=== PATIENT | male | born 1985 | race Caucasian/White ===

== ENCOUNTER 2021-02-10 14:01 | Emergency (ER) | payer OTHER, SELFPAY ==
[2021-02-10] VITALS (11 sets, daily range): BP systolic 144–156; BP diastolic 73–83; PULSE 64–65; RESP 16–18; TEMP 37; O2SAT 99–100
--- NOTE | ~2021-02-10 | CT_ITS ---
EXAMINATION: CT abdomen pelvis w con DATE: 02/10/2021 14:49 INDICATION: Right lower quadrant abdominal pain TECHNIQUE: Computed tomography (CT) of the abdomen and pelvis was performed with 100 mL Omnipaque-350 intravenous contrast. Automated exposure control and iterative reconstruction technique were employe d. The dose-length product was 415.18 mGy-cm. COMPARISON: None FINDINGS: Lung bases are clear. The visualized inferior heart is normal. No pericardial or pleural effusion. Li reji, gallbladder, spleen, pancreas and bilateral adrenal glands are normal. Bilateral renal cysts the largest measuring 12 mm in the left kidney. No obstruction or abnormal bowel wall thickening. There is a likely a normal appendix seen extending caudally along the right iliopsoas. No pericecal inflamm atory change to suggest acute appendicitis. Mild diffuse bladder wall thickening which could be relat ed to partially decompressed state although differential includes cystitis. No free intraperitoneal g as or fluid. No pathologically enlarged abdominal or pelvic lymphadenopathy. Mild degenerative skelet al changes in the spine and at both hips. Chronic mild anterior wedging at T11-L2. Partial ankylosis across the right sacroiliac joint. IMPRESSION: 1. Diffuse mild bladder wall thickening which could be due to incomplete distention or cystitis eithe r acute or chronic. Correlate with urinalysis. Reviewed, dictated and finalized at location B. IMPRESSION: 1. Diffuse mild bladder wall thickening which could be due to incomplete disten tion or cystitis either acute or chronic. Correlate with urinalysis.
[2021-02-10] MEDS: SODIUM CHLORIDE 0.9% IV 1,000 ML 999 ML IV CONT (14:19)
[2021-02-10 14:27] LABS: Basophils Percent Auto 0.1 % (0.2-1.2); Eosinophils Percent Auto 0.1 % (0-4.4); Hematocrit 47.4 % (42.0-52.0); Hemoglobin 15.7 g/dL (14.0-18.0); Immature Granulocyte Absolute 0.03 K/mm3 (0.00-0.031); Immature Granulocyte Percent A 0.4 % (0-0.5); Lymphocytes Absolute Auto 1.12 K/mm3 (0.9-3.2); Lymphocytes Percent Auto 15.3 % (18.3-44.2); Mean Corpuscular HGB Conc 33.1 g/dl (32-36); Mean Corpuscular Hemoglobin 27.2 pg (26-34); Mean Platelet Volume 12.6 fl (7.4-10.4); Monocytes Absolute Auto 0.6 K/mm3 (0.1-0.6); Monocytes Percent Auto 8.1 % (2.6-8.5); Neutrophils Absolute Auto 5.6 K/mm3 (1.3-6.7); Platelet Count Result 164 k/mm3 (150-375); Red Blood Count 5.78 M/mm3 (4.6-6.20); Red Cell Distribution Width 12.5 % (11.5-14.5); White Blood Count 7.3 K/mm3 (4.5-10.0)
--- NOTE | 2021-02-10 14:31 | ED.GENADULT ---
HPI - General Adult General Chief complaint: Abdominal Pain Stated complaint: Abd Pain Time Seen by Provider: 02/10/21 14:04 History of Present Illness HPI narrative: Patient is a 35-year-old male who presents ER with lower abdominal pain. Reports he began around the middle of his abdomen around 10 AM. It since moved around to the right side. No urinary frequency or urgency. No pain radiating into his testicle. The pain does not particularly radiate anywhere. Cannot describe any aggravating or alleviating factors. He has had some mild nausea but no vomiting. No fevers or chills or sweats. 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 Related Data Allergies Allergy/AdvReac Type Severity Reaction Status Date / Time No Known Allergies Allergy Verified 02/10/21 14:23 Review of Systems Review of Systems: All systems reviewed & are unremarkable except as noted in HPI and below Constitutional: Constitutional: Denies chills, Denies fever(s) and Denies weakness Cardiovascular: Cardiovascular: Denies chest pain and Denies radiating jaw, neck or arm pain Respiratory: Respiratory: Denies cough, Denies dyspnea and Denies wheezing Gastrointestinal: Gastrointestinal: Reports abdominal pain, Denies diarrhea, Reports nausea and Denies vomiting Genitourinary: Genitourinary: Denies dysuria, Denies testicular pain and Denies urinary frequency PMFSH Past Medical History Medical History (Updated 02/10/21 @ 15:36 by Lefty Laws MD) Healthy adult male Surgical History Surgical History (Updated 02/10/21 @ 14:33 by Lefty Laws MD) S/P orchiopexy Social History Social History Alcohol intake: never Exam Narrative: Exam Narrative: GENERAL: Well-appearing, well-nourished, and in no acute distress. HEAD: Normocephalic, atraumatic. CHEST: Clear to auscultation. No respiratory distress. HEART: Regular rate and rhythm. Normal peripheral pulses. ABDOMEN: Soft, mild tenderness at McBurney's point w/o guarding but + [place], nondistended. EXTREMITIES: Normal range of motion. No edema. SKIN: Warm, dry, no rash. NEURO: Alert and oriented x3. PSYCH: Normal mood and affect. Course Course Emergency Course: Unremarkable evaluation. Discharge home. Vital Signs Vital signs: Vital Signs Temperature 98.6 F 02/10/21 14:05 Pulse Rate 65 02/10/21 14:05 Respiratory Rate 16 02/10/21 14:05 Blood Pressure 156/73 H 02/10/21 14:05 Pulse Oximetry 99 02/10/21 14:05 Temperature 98.6 F 02/10/21 14:05 Pulse Rate 65 02/10/21 14:05 Respiratory Rate 16 02/10/21 14:05 Blood Pressure 154/79 H 02/10/21 15:01 Pulse Oximetry 100 02/10/21 15:01 Medical Decision Making Vital Signs Vital Signs: Vital Signs Temperature 98.6 F 02/10/21 14:05 Pulse Rate 65 02/10/21 14:05 Respiratory Rate 16 02/10/21 14:05 Blood Pressure 156/73 H 02/10/21 14:05 Pulse Oximetry 99 02/10/21 14:05 Temperature 98.6 F 02/10/21 14:05 Pulse Rate 65 02/10/21 14:05 Respiratory Rate 16 02/10/21 14:05 Blood Pressure 154/79 H 02/10/21 15:01 Pulse Oximetry 100 02/10/21 15:01 Lab Data Result diagrams: 02/10/21 14:18 02/10/21 14:18 Labs: Lab Results 02/10/21 02/10/21 02/10/21 Range/Units 14:18 14:18 15:15 WBC 7.3 (4.5-10.0) K/mm3 RBC 5.78 (4.6-6.20) M/mm3 Hgb 15.7 (14.0-18.0) g/dL Hct 47.4 (42.0-52.0) % MCV 82.0 (80-100) fl MCH 27.2 (26-34) pg MCHC 33.1 (32-36) g/dl RDW 12.5 (11.5-14.5) % Plt Count 164 (150-375) k/mm3 MPV 12.6 H (7.4-10.4) fl Immature Gran % (Auto) 0.4 (0-0.5) % Neut % (Auto) 76.0 H (45.5-73.1) % Lymph % (Auto) 15.3 L (18.3-44.2) % [place] % (Auto) 8.1 (2.6-8.5) % Eos % (Auto) 0.1 (0-4.4) % Baso % (Auto) 0.1 L (0.2-1.2) % Lymph # (Auto) 1.12 (0.9-3.2) K/mm3 [place] # (Auto) 0.6 (0.1-0.6) K/mm3 Eos # (Auto) 0.0 (0-0.3) K/
[2021-02-10 14:38] LABS: Anion Gap 3 mmol/L (8-16); Blood Urea Nitrogen 18 mg/dL (9-20); Carbon Dioxide 35 mmol/L (22-30); Chloride 103 mmol/L (98-107); Estimated CRCL calculation 111 ml/min; Estimated Glomerular Filt Rate > 60; Glucose 96 mg/dL (75-110); Potassium 4.1 mmol/L (3.4-5.0); Sodium 141 mmol/L (137-145)
[2021-02-10] MEDS: MORPHINE SULFATE (*CRX) 4 MG/ML INJ IV PUSH (15:07)
[2021-02-10] MEDS: ONDANSETRON INJ 4 MG/2 ML VIAL IV PUSH (15:08)
[2021-02-10 15:24] LABS: Add Urine Microscopic? YES; Amorphous Sediment Urine Few; Appearance Urine Cloudy (Clear); Bacteria Urine Trace /hpf; Bilirubin Urine Negative (Negative); Blood Urine Negative (Negative); Color Urine Yellow (Yellow); Glucose Urine UA Negative (Negative); Ketones Urine Negative (Negative); Leukocyte Esterase Ur Negative LEU/UL (Negative); Mucus Urine Rare /lpf; Nitrate Urine Negative (Negative); Protein Urine Negative (Negative); RBC Urine 0-2 /hpf (0-2); Specific Grav Ur 1.019 (1.001-1.035); Squamous Epithelial Cell Urine Rare /hpf (Few); Urobilinogen Urine Negative mg/dL (<2.0); WBC Urine 0-3 /hpf
== END 2021-02-10 15:58 | disposition home or self-care (01) ==
PROVIDERS: Emergency Provider Emergency Medicine; PCP Physician Assistant
DX: R10.31 Right lower quadrant pain (principal); K59.00 Constipation, unspecified; R93.41 Abnormal radiologic findings on diagnostic imaging of renal pelvis, ureter, or bladder
CPT/HCPCS: 36415; 74177; 80048; 81001; 85025; 96361; 96374; 96375; 99284; J2270; J2405; J7030; Q9967

== ENCOUNTER → 2021-07-20 16:07 | Outpatient (CLI) | payer OTHER, SELFPAY ==
--- NOTE | ~2021-07-20 | XR_ITS ---
EXAMINATION: XR foot LT min 3V, XR heel LT min 2V DATE: 07/20/2021 16:26 INDICATION: Left foot and posterior heel vein TECHNIQUE: 1. Dorsoplantar, two oblique and lateral views of the left foot were obtained. 2. Axial and lateral views of the left calcaneus were obtained. COMPARISON: None. FINDINGS: Alignment is normal. No fracture. 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 Talar beaking and suggestion of posterior talocalcaneal coalition. Soft tissues are unremarkable. IMPRESSION: 1. 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 Reviewed, dictated and finalized at location B. IMPRESSION: 1. 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
== END ==
PROVIDERS: PCP Physician Assistant; Visit Provider Physician Assistant
DX: M79.672 Pain in left foot (principal)
CPT/HCPCS: 73630; 73650